=== PATIENT | female | born 1940 | race Caucasian/White ===

== ENCOUNTER 2020-06-03 08:21 | Emergency (ER) | payer MEDICARE, OTHER ==
[~2020-06-03 08:21] MED LIST: ASPIRIN CHEWABL81 MG PO; CITRATE OF MAG296 ML PO; COREG12.5 MG PO; FOLIC ACID1 MG PO; LASIX20 MG PO; LOVAZA1 GM PO; MAG-OXIDE 400M400 MG PO; METHOTREXATE PO; NEXIUM40 MG PO; OS-CAL500 MG PO; PRAVASTATIN SOD40 MG PO; SUPER B COMPLE150 MG PO; VITAMIN E100 UNI3 PO
[2020-06-03 09:46] LABS: BASOPHIL 0.6 % (0-2); EOSINOPHIL 1.7 % (0-7); HGB 10.4 g/dl (12.5-16.0); LYMPHOCYTE 18.9 % (15-48); MCH 31.9 pg (25.0-31.0); MCHC 33.5 g/dL (32.0-36.0); MCV 95.1 fL (78.0-100.0); MONOCYTE 5.4 % (0-12); MPV 10.4 fL (6.0-9.5); NRBC 0; PLT 210 K/uL (150-400); RBC 3.26 M/uL (4.20-5.40); RDW 15.7 % (11.5-14.0); WBC 4.8 K/uL (4.0-10.5)
[2020-06-03 09:50] LABS: INR 1.24 (0.9-1.2); PROTHROMBIN TIME 14.8 SECONDS (11.4-13.6); PTT 32.6 SECONDS (22.2-34.7)
[2020-06-03 09:52] LABS: D-DIMER 2.63 ug/mLFEU (0.00-0.41)
[2020-06-03 09:56] LABS: PRO-BNP 5395 pg/mL (<450)
[2020-06-03 10:04] LABS: ALBUMIN 3.2 g/dL (3.4-5.0); BUN/CREAT RATIO (CALC) 23.9 RATIO; C-REACTIVE PROTEIN 5.6 mg/dL (<=0.90); CREATININE 0.71 mg/dL (0.51-0.95); GLOBULIN (CALCULATION) 4.1 g/dL; MAGNESIUM 2.3 mg/dL (1.8-2.4); POTASSIUM 3.7 mmol/L (3.5-5.1); TOTAL PROTEIN 7.3 g/dL (6.4-8.2)
[2020-06-03 10:12] LABS: BILIRUBIN NEGATIVE (NEGATIVE); BLOOD NEGATIVE Ery/uL (NEGATIVE); CLARITY CLEAR (CLEAR); COLOR YELLOW (YELLOW); GLUCOSE (U) NORMAL (NORMAL); LEUKOCYTES NEGATIVE Leu/uL (NEGATIVE); NITRITE NEGATIVE (NEGATIVE); PROTEIN NEGATIVE (NEGATIVE); UROBILINOGEN 0.2 mg/dL (0.2-1.0); pH 6.5 (5.0-9.0)
[2020-06-03 10:22] LABS: LACTIC ACID 1.3 mmol/L (0.4-1.9)
== END 2020-06-03 13:50 | disposition other institution (70) ==
LOC: FER 08:21
PROVIDERS: Emergency Medicine
DX: I50.1 Left ventricular failure, unspecified (principal); J96.91 Respiratory failure, unspecified with hypoxia; I44.7 Left bundle-branch block, unspecified; I25.10 Atherosclerotic heart disease of native coronary artery without angina pectoris; Z95.1 Presence of aortocoronary bypass graft; Z95.5 Presence of coronary angioplasty implant and graft; Z79.899 Other long term (current) drug therapy; Z20.822 Contact with and (suspected) exposure to COVID-19
CPT/HCPCS: 36415; 36600; 71275; 80053; 81003; 82728; 82803; 83605; 83615; 83735; 83880; 84145; 84484; 85025; 85379; 85610; 85730; 86140; 87040; 93005; Q9967; U0002

== ENCOUNTER 2020-06-18 12:21 | Emergency (ER) | payer MEDICARE, OTHER ==
[2020-06-18 15:41] LABS: ALBUMIN 2.9 g/dL (3.4-5.0); BILIRUBIN - TOTAL 1.4 mg/dL (0.2-1.0); BUN/CREAT RATIO (CALC) 32.8 RATIO; CREATININE 0.64 mg/dL (0.51-0.95); GLOBULIN (CALCULATION) 4.7 g/dL; POTASSIUM 3.4 mmol/L (3.5-5.1); TOTAL PROTEIN 7.6 g/dL (6.4-8.2)
[2020-06-18 15:47] LABS: BASOPHIL 0.5 % (0-2); EOSINOPHIL 1.9 % (0-7); HCT 32.9 % (37.0-47.0); HGB 11.1 g/dl (12.5-16.0); MCH 31.4 pg (25.0-31.0); MCHC 33.7 g/dL (32.0-36.0); MCV 92.9 fL (78.0-100.0); MPV 10.3 fL (6.0-9.5); NEUTROPHIL 63.1 % (41-80); NRBC 0; PLT 160 K/uL (150-400); RBC 3.54 M/uL (4.20-5.40); RDW 15.8 % (11.5-14.0); WBC 4.3 K/uL (4.0-10.5)
[2020-06-18 15:50] LABS: PRO-BNP 1431 pg/mL (<450)
== END 2020-06-18 16:39 | disposition home or self-care (01) ==
LOC: FER 12:21
PROVIDERS: Emergency Medicine
DX: R42 Dizziness and giddiness (principal); R03.1 Nonspecific low blood-pressure reading; R06.02 Shortness of breath; I10 Essential (primary) hypertension; E78.5 Hyperlipidemia, unspecified; Z79.899 Other long term (current) drug therapy; Z79.82 Long term (current) use of aspirin
CPT/HCPCS: 36415; 71045; 80053; 83880; 84484; 85025; 93005; J7040

== ENCOUNTER 2020-06-28 10:40 | Emergency (ER) | payer MEDICARE, OTHER ==
[2020-06-28 12:18] LABS: BUN/CREAT RATIO (CALC) 26.3 RATIO; CREATININE 0.76 mg/dL (0.51-0.95)
== END 2020-06-28 12:42 | disposition home or self-care (01) ==
LOC: FER 10:40
PROVIDERS: Emergency Medicine
DX: I50.9 Heart failure, unspecified (principal); J44.9 Chronic obstructive pulmonary disease, unspecified
CPT/HCPCS: 36415; 80048; 99284

== ENCOUNTER → 2021-01-15 | Day surgery (SDC) | payer MEDICARE, OTHER ==
[~2021-01-15] VITALS: Ht 160 cm; Wt 59.0 kg
[~2021-01-15] MED LIST changes: +ALDACTONE25 MG PO; +LOSARTAN POTASS25 MG PO; +[UNRECOGNIZED DRUG - OTHER] IV
== END | disposition home or self-care (01) ==
LOC: FAS 08:00
DX: Z12.11 Encounter for screening for malignant neoplasm of colon (principal); D12.0 Benign neoplasm of cecum; E78.5 Hyperlipidemia, unspecified; I42.8 Other cardiomyopathies; I50.9 Heart failure, unspecified; Z79.82 Long term (current) use of aspirin; Z79.899 Other long term (current) drug therapy; Z86.010 Personal history of colon polyps
CPT/HCPCS: J2704; J7120